=== PATIENT | male | born 1990 | race Caucasian/White ===

== ENCOUNTER 2020-02-03 08:38 | Emergency (ER) | payer SELFPAY ==
--- NOTE | 2020-02-03 09:58 | RAD REPORT ---
EXAM DESCRIPTION: RAD - Chest Single View - 02/03/2020 9:13 am CLINICAL HISTORY: DYSPNEA COMPARISON: None TECHNIQUE: AP portable chest image was obtained 02/03/2020 9:13 am . FINDINGS: No focal mass or consolidation. No mediastinal or hilar abnormality. Trachea is midline. H eart and vasculature are normal. No measurable pleural effusion and no pneumothorax. No acute bony ab normality seen. No acute aortic findings suspected. IMPRESSION: No acute cardiopulmonary process.
--- NOTE | 2020-02-03 10:17 | ER ---
Nurse's Notes [facility] Name: Darshan Wilson Age: 29 yrs Sex: Male : 1990 Arrival Date: 02/03/2020 Time: 08:43 Bed 15 Private MD: Diagnosis: Dyspnea;Bronchitis, not specified as acute or chronic Presentation: 02/02 08:59 Chief complaint: Patient states: I started coughing really bad this morning and I feel iw short of breath. Coronavirus screen: Client denies travel out of the [place] in the last 14 days. Client presents with at least one sign or symptom that may indicate coronavirus-19. Standard/surgical mask placed on the client. Ebola Screen: Patient negative for fever greater than or equal to 101.5 degrees Fahrenheit, and additional compatible Ebola Virus Disease symptoms Patient denies exposure to infectious person. Initial Sepsis Screen: Does the patient meet any 2 criteria? No. Patient's initial sepsis screen is negative. Does the patient have a suspected source of infection? No. Patient's initial sepsis screen is negative. Risk Assessment: Do you want to hurt yourself or someone else? Patient reports no desire to harm self or others. Onset of symptoms was February 03, 2020. Care prior to arrival: None. 08:59 Method Of Arrival: Ambulatory iw 08:59 Acuity: COSTA 4 iw Triage Assessment: 09:01 General: Appears in no apparent distress. uncomfortable, Behavior is calm, cooperative, iw appropriate for age. Pain: Denies pain. EENT: Oral mucosa is moist. Throat is reddened with gag reflex present, Denies pain when swallowing. Neuro: No deficits noted. Cardiovascular: No deficits noted. Respiratory: Reports shortness of breath at rest on exertion cough that is non-productive, Breath sounds are clear bilaterally. Onset: The symptoms/episode began/occurred this morning, the patient has moderate shortness of breath. Historical: - Allergies: 09: Clindamycin; iw - Home Meds: : None [Active]; iw - PMHx: : None; iw - PSHx: 09: None; iw - Immunization history:: Adult Immunizations up to date. - Social history:: Smoking status: Patient/guardian denies using tobacco products, pt states he quit smoking two weeks ago. - Family history:: not pertinent. Screenin:00 Abuse screen: Denies threats or abuse. Denies injuries from another. Nutritional ca1 screening: No deficits noted. Tuberculosis screening: No symptoms or risk factors identified. Fall Risk None identified. Assessment: 10:00 General: Appears in no apparent distress. comfortable, Behavior is calm, cooperative, ca1 appropriate for age. Pain: Denies pain. Neuro: Level of Consciousness is awake, alert, obeys commands, Oriented to person, place, time, situation. Cardiovascular: Heart tones S1 S2 present Capillary refill < 3 seconds Patient's skin is warm and dry. Rhythm is regular. Respiratory: Airway is patent Respiratory effort is even, unlabored, Respiratory pattern is regular, symmetrical. Respiratory: Reports shortness of breath. Derm: Skin is intact, is healthy with good turgor, Skin is pink, warm \T\ dry. Musculoskeletal: Circulation, motion, and sensation intact. Capillary refill < 3 seconds. 10:44 Reassessment: Patient appears in no apparent distress at this time. Patient is alert, ca1 oriented x 3, equal unlabored respirations, skin warm/dry/pink. Vital Signs: 08:58 BP 124 / 92; Pulse 83; Resp 18; Temp 98.3; Pulse Ox 100% on R/A; Weight 81.65 kg (R); iw Height 6 ft. 1 in. (185.42 cm); Pain 0/10; 10:00 BP 116 / 88; Pulse 81; Resp 16 S; Pulse Ox 100% on R/A; ca1 10:44 BP 118 / 78; Pulse 86; Resp 16 S; Pulse Ox 100% on R/A; ca1 08:58 Body Mass Index 23.75 (81.65 kg, 185.42 cm) iw ED Course: 08:43 Patient arrived in ED. ag5 08:51 Edi Sellers MD is Attending Physician. swati 08:59 Arm band placed on right wrist. iw 09:01 Triage completed. iw 09:09 Chest Single View XRAY In Process Unspecified. EDMS 10:00 Patient has correct armband on for positive identification. Bed in low position. Call ca1 light in reach. Side rails up X 1. Pulse ox on. NIBP on. 10:13 Irene Munoz RN is Primary Nurse. ca1 10:16 Candida Calvillo DO is Referral Physician. swati 10:45 No provider procedures requiring assistance completed. Patient did not have IV access ca1 during this emergency room visit. Administered Medications: 10:17 Drug: predniSONE 60 mg Route: PO; ca1 10:40 Follow up: Response: No adverse reaction ca1 10:18 Drug: Zithromax 500 mg Route: PO; ca1 10:40 Follow up: Response: No adverse reaction ca1 10:19 Drug: AtroVENT Aerosol 0.5 mg Route: Inhalation; ca1 10:20 Drug: Albuterol 5 mg Route: Inhalation; ca1 Outcome: 10:17 Discharge ordered by . [facility] 10:45 Discharged to home ambulatory, with family. ca1 10:45 Condition: stable 10:45 Discharge instructions given to patient, Instructed on discharge instructions, follow up and referral plans. medication usage, Demonstrated understanding of instructions, follow-up care, medications, Prescriptions given X 3. 10:45 Patient left the ED. ca1 Signatures: Dispatcher [employer] EDEdi Valentin MD MD cha Williams, Irene, RN RN iw Acob, Cheryl, RN RN ca1 Gaskin, Ajare ag5
--- NOTE | 2020-02-03 10:17 | EDPHYS ---
Physician Documentation [facility] Name: Darshan Wilson Age: 29 yrs Sex: Male : 1990 Arrival Date: 02/03/2020 Time: 08:43 Bed 15 Private MD: ED Physician Edi Sellers HPI: 02/02 10:13 This 29 yrs old Male presents to ER via Ambulatory with complaints of swati Breathing Difficulty. 10:13 The patient has shortness of breath at rest, with light activity. Onset: The swati symptoms/episode began/occurred 2 day(s) ago. Duration: The symptoms are continuous, and are unchanged since they started. The patient's shortness of breath has no apparent modifying factors. Associated signs and symptoms: The patient has no apparent associated signs or symptoms. Severity of symptoms: At their worst the symptoms were mild in the emergency department the symptoms are unchanged. The patient has not experienced similar symptoms in the past. Historical: - Allergies: 09: Clindamycin; iw - Home Meds: : None [Active]; iw - PMHx: : None; iw - PSHx: 09: None; iw - Immunization history:: Adult Immunizations up to date. - Social history:: Smoking status: Patient/guardian denies using tobacco products, pt states he quit smoking two weeks ago. - Family history:: not pertinent. ROS: 10:13 Constitutional: Negative for fever, chills, and weight loss, Eyes: Negative for injury, swati pain, redness, and discharge, ENT: Negative for injury, pain, and discharge, Neck: Negative for injury, pain, and swelling, Cardiovascular: Negative for chest pain, palpitations, and edema, Abdomen/GI: Negative for abdominal pain, nausea, vomiting, diarrhea, and constipation, Back: Negative for injury and pain, : Negative for injury, bleeding, discharge, and swelling, MS/Extremity: Negative for injury and deformity, Skin: Negative for injury, rash, and discoloration, Neuro: Negative for headache, weakness, numbness, tingling, and seizure, Psych: Negative for depression, anxiety, suicide ideation, homicidal ideation, and hallucinations, Allergy/Immunology: Negative for hives, rash, and allergies, Endocrine: Negative for neck swelling, polydipsia, polyuria, polyphagia, and marked weight changes, Hematologic/Lymphatic: Negative for swollen nodes, abnormal bleeding, and unusual bruising. 10:13 Respiratory: Positive for cough, shortness of breath, wheezing, expiratory. Exam: 10:13 Constitutional: This is a well developed, well nourished patient who is awake, alert, swati and in no acute distress. Head/Face: Normocephalic, atraumatic. Eyes: Pupils equal round and reactive to light, extra-ocular motions intact. Lids and lashes normal. Conjunctiva and sclera are non-icteric and not injected. Cornea within normal limits. Periorbital areas with no swelling, redness, or edema. ENT: Nares patent. No nasal discharge, no septal abnormalities noted. Tympanic membranes are normal and external auditory canals are clear. Oropharynx with no redness, swelling, or masses, exudates, or evidence of obstruction, uvula midline. Mucous membranes moist. Neck: Trachea midline, no thyromegaly or masses palpated, and no cervical lymphadenopathy. Supple, full range of motion without nuchal rigidity, or vertebral point tenderness. No Meningismus. Chest/axilla: Normal chest wall appearance and motion. Nontender with no deformity. No lesions are appreciated. Cardiovascular: Regular rate and rhythm with a normal S1 and S2. No gallops, murmurs, or rubs. Normal PMI, no JVD. No pulse deficits. Abdomen/GI: Soft, non-tender, with normal bowel sounds. No distension or tympany. No guarding or rebound. No evidence of tenderness throughout. Back: No spinal tenderness. No costovertebral tenderness. Full range of motion. Male : Normal genitalia with no discharge or lesions. Skin: Warm, dry with normal turgor. Normal color with no rashes, no lesions, and no evidence of cellulitis. MS/ Extremity: Pulses equal, no cyanosis. Neurovascular intact. Full, normal range of motion. Neuro: Awake and alert, GCS 15, oriented to person, place, time, and situation. Cranial nerves II-XII grossly intact. Motor strength 5/5 in all extremities. Sensory grossly intact. Cerebellar exam normal. Normal gait. Psych: Awake, alert, with orientation to person, place and time. Behavior, mood, and affect are within normal limits. 10:13 Respiratory: the patient does not display signs of respiratory distress, Respirations: normal, Breath sounds: rhonchi, that are mild, wheezing: expiratory Respiratory rate: 18 Vital Signs: 08:58 BP 124 / 92; Pulse 83; Resp 18; Temp 98.3; Pulse Ox 100% on R/A; Weight 81.65 kg (R); iw Height 6 ft. 1 in. (185.42 cm); Pain 0/10; 10:00 BP 116 / 88; Pulse 81; Resp 16 S; Pulse Ox 100% on R/A; ca1 10:44 BP 118 / 78; Pulse 86; Resp 16 S; Pulse Ox 100% on R/A; ca1 08:58 Body Mass Index 23.75 (81.65 kg, 185.42 cm) iw MDM: 09:56 Patient medically screened. swati 10:15 Differential diagnosis: Anxiety Reaction asthma, Bronchitis Chronic Obstructive swati Pulmonary Disease pneumonia, Pneumothorax pulmonary edema, reactive airway disease. Antibiotic administration: The patient is discharged and will get outpatient antibiotics, Zithromax. The patient's Wells Deep Vein Thrombosis Score was calculated as follows: Total Score: 0-2 Pts- Low Risk. The patient's pulmonary embolism risk score was calculated as follows: Total Score: 0-2 points. This patient was found to be at low risk for a pulmonary embolism by using the Well's assessment criteria. Immunization status:. Data reviewed: vital signs, nurses notes, radiologic studies, plain films. Data interpreted: vocational education teacher: rate is 83 beats/min, rhythm is regular. Test interpretation: by ED physician or midlevel provider: plain radiologic studies. 02/02 08:52 Order name: Chest Single View XRAY swati Administered Medications: 10:17 Drug: predniSONE 60 mg Route: PO; ca1 10:40 Follow up: Response: No adverse reaction ca1 10:18 Drug: Zithromax 500 mg Route: PO; ca1 10:40 Follow up: Response: No adverse reaction ca1 10:19 Drug: AtroVENT Aerosol 0.5 mg Route: Inhalation; ca1 10:20 Drug: Albuterol 5 mg Route: Inhalation; ca1 Disposition: 02/03/20 10:17 Discharged to Home. Impression: Dyspnea, Bronchitis, not specified as acute or chronic. - Condition is Stable. - Discharge Instructions: Acute Bronchitis, Adult, How to Use an Inhaler, Shortness of Breath, Upper Respiratory Infection, Adult, Shortness of Breath, [id number], Cough, Adult, [id number], Cough, Adult. - Prescriptions for Zithromax Z- Jhonatan 250 mg Oral Tablet - take 1 tablet by ORAL route as directed for 5 days Day 1 - take two (2) tablets one time. Day 2, 3, 4 , 5 take one (1) tablet once daily.; 6 tablet. Prednisone 20 mg Oral Tablet - take 2 tablet by ORAL route once daily for 5 days; 10 tablet. Albuterol Sulfate 90 mcg/actuation - inhale 1-2 puff by INHALATION route every 4-6 hours; 1 Inhaler. - Medication Reconciliation Form, Thank You Letter, Antibiotic Education, Prescription Opioid Use, Work release form form. - Follow up: Private Physician; When: 2 - 3 days; Reason: Recheck today's complaints, Continuance of care, Re-evaluation by your physician. Follow up: Candida Calvillo DO; When: 2 - 3 days; Reason: Recheck today's complaints, Re-evaluation by your physician. - Problem is new. - Symptoms have improved. Signatures: Dispatcher [employer] EDEdi Valentin MD MD cha Williams, Irene, JAMAR RN iw Irene Munoz RN RN ca1 Corrections: (The following items were deleted from the chart) 10:45 10:17 02/03/2020 10:17 Discharged to Home. Impression: Dyspnea; Bronchitis, not ca1 specified as acute or chronic. Condition is Stable. Forms are Medication Reconciliation Form, Thank You Letter, Antibiotic Education, Prescription Opioid Use. Follow up: Private Physician; When: 2 - 3 days; Reason: Recheck today's complaints, Continuance of care, Re-evaluation by your physician. Follow up: Candida Calvillo; When: 2 - 3 days; Reason: Recheck today's complaints, Re-evaluation by your physician. Problem is new. Symptoms have improved. swati
[2020-02-03] MEDS ORDERED: AZITHROMYCIN 250 MG TAB ONE (10:33)
[2020-02-03] MEDS ORDERED: predniSONE 20 MG TAB ONE (10:33)
[2020-02-03] MEDS ORDERED: IPRATROPIUM BROM 0.5MG/2.5ML ONE (10:33)
[2020-02-03] MEDS ORDERED: ALBUTEROL 2.5 MG/3 ML NEB SOL ONE (10:33)
[2020-02-03 17:56] VITALS: TEMP 98.3; O2SAT 100
[2020-02-03 18:00] VITALS: BP 118/78
== END 2020-02-03 10:45 | disposition home or self-care (01) ==
LOC: ER 08:38
DX: J40 Bronchitis, not specified as acute or chronic (principal); F17.210 Nicotine dependence, cigarettes, uncomplicated; Z88.3 Allergy status to other anti-infective agents
CPT/HCPCS: 71045; 99284; J7512